=== PATIENT | female | born 1950 | race Caucasian/White ===

== ENCOUNTER 2021-09-07 08:19 | Day surgery (SDC) | payer OTHER ==
[2021-09-07] MEDS ORDERED: Ringers Lactate 1,000 ML IV ONE (09:03)
--- NOTE | 2021-09-07 09:18 | RAD REPORT ---
EXAM DESCRIPTION: RAD - Chest Pa And Lat (2 Views) - 09/07/2021 9:12 am CLINICAL HISTORY: PREPROCEDURE SCREENING Chest pain. COMPARISON: No comparisons FINDINGS: The lungs are clear. The heart is normal in size. No displaced fractures. IMPRESSION: No acute or concerning finding suspected.
[2021-09-07 09:22] LABS: Absolute Lymphocytes (CBC) 1.5 K/uL (0.7-4.9); Hematocrit 36.2 % (36.0-45.0); Lymphocytes % 23.1 % (15.3-44.8); MPV 7.1 fL (7.6-11.3); RBC Red Blood Cell Count 4.59 M/uL (3.86-4.86)
[2021-09-07] MEDS ORDERED: MIDAZOLAM HCL 2 MG/2 ML INJ ONE (09:48)
[2021-09-07] MEDS ORDERED: propofoL 200 MG/20 ML VIAL IV ONE (09:48)
[2021-09-07] MEDS ORDERED: LIDOCAINE 1% MPF 5 ML VIAL ONE (09:48)
[2021-09-07] MEDS ORDERED: ROCURONIUM 50 MG/5 ML VIAL IV ONE (09:48)
[2021-09-07] MEDS ORDERED: FENTANYL CITR 100 MCG/2 ML ONE (09:48)
[2021-09-07 10:03] LABS: ALT/SGPT 17 U/L (12-78); AST/SGOT 13 U/L (15-37); Albumin 3.5 g/dL (3.4-5.0); Alkaline Phosphatase 82 U/L (45-117); Amylase 47 U/L (25-115); BUN Blood Urea Nitrogen 14 mg/dL (7-18); Bicarbonate 26 mmol/L (21-32); Bilirubin Total 0.3 mg/dL (0.2-1.0); Glomerular Filtration Rate 61 ml/min (=/>90); Glucose Level 100 mg/dL (74-106); Potassium 3.9 mmol/L (3.5-5.1); Protein, Total 7.2 g/dL (6.4-8.2); Sodium Level 139 mmol/L (136-145)
[2021-09-07 10:04] LABS: Bilirubin Direct < 0.1 mg/dL (0-0.2)
[2021-09-07] MEDS ORDERED: CEFOXITIN SODIUM 1 GM/VIAL ONE (10:07)
[2021-09-07] MEDS ORDERED: NS 0.9% VIAL 10 ML ONE ×2 (10:23→10:49)
[2021-09-07] MEDS ORDERED: KETOROLAC 30 MG/ML INJ ONE (10:35)
[2021-09-07] MEDS ORDERED: ONDANSETRON 4 MG/2 ML VIAL ONE ×2 (10:35→11:43)
[2021-09-07] MEDS ORDERED: dexAMETHasone 10 MG/ML VIAL ONE (10:35)
[2021-09-07] MEDS ORDERED: EPHEDRINE SULF 50 MG/ML VIAL ONE (10:49)
--- NOTE | 2021-09-07 10:53 | P.BOP ---
Preoperative diagnosis: symptomatic cholelithiasis, cholecystitis Postoperative diagnosis: same Primary procedure: Laparoscopic cholecystectomy Desulfurizer Hand: SUKH RIVERA (DOUBLE BOTTOM DRIVER) Estimated blood loss: <10cc Specimen: gb Findings: as above Anesthesia: General Complications: None Transferred to: Recovery Room Condition: Good
[2021-09-07] MEDS ORDERED: GLYCOPYRROLATE 0.2 MG/ML SYR ONE (10:56)
[2021-09-07] MEDS ORDERED: NEOSTIGMINE 1 MG/ML -10 ML VIAL ONE (10:56)
[2021-09-07] MEDS ORDERED: HYDROMORPHONE HCL 1 MG/ML INJ ONE (11:16)
[2021-09-07] MEDS ORDERED: HYDROCODONE/APAP 5/325 MG TAB ONE (12:20)
--- NOTE | 2021-09-07 13:17 | OP ---
Date of Procedure: 09/07/2021 Surgeon: Elias Loomis MD [employer] Interleafer: MARGO Zamora. Preoperative Diagnoses: Symptomatic cholelithiasis, acute cholecystitis. Postoperative Diagnoses: Symptomatic cholelithiasis, acute cholecystitis. Procedure: Laparoscopic cholecystectomy. Estimated Blood Loss: Less than 10 mL. Specimen: Gallbladder. Finding: As above. Anesthesia: General plus local. Complications: None. Indication: This is the case of a female, who comes to us with above diagnoses. Fully explained the benefits, alternatives, and risks of laparoscopic possible open cholecystectomy, which include, but not limited to infection, bleeding, damage to adjacent structures, anesthesia complication, choledoch olithiasis, bile leak, pancreatitis, LA and even . She also understands this may not relieve an y symptoms. She might need more than one surgical intervention. She understood, signed a consent. Procedure In Detail: The patient was brought to the operating room, placed in supine position. Anes thesia was done without complication. Abdominal area was prepped and draped in the usual sterile fas hion. Marcaine 0.5% was injected for local anesthetic followed by sharp incision of the skin in the infraumbilical region. Incision was carried down to fascia, which was opened under direct vision. P eritoneum was encountered, opened under direct vision. Vicryl #1 placed inside of the fascia. Hasso n trocar was carefully introduced. Pneumoperitoneum was obtained. I placed 3 more trocars under dir ect visualization in the right upper quadrant, 5 mm each one of them. This allowed me to put a grasp er in the fundus of the gallbladder, another grasper in the infundibulum retracting the gallbladder i n the inferolateral fashion, exposing the triangle of Calot and obtaining critical view. Cystic duct and cystic artery were clearly isolated, freed circumferentially and a connection between those and the gallbladder were clearly identified. I proceeded to ligate those by using at least 3 clips proxi mal, 1 clip distal, ligation in middle. Same was done with the cystic artery. No bile leak, no blee ding. The gallbladder was removed from liver using Bovie cauterizer and removed from the abdominal c avity using EndoCatch through the umbilical incision. The area was inspected once again. No bile le ak, no bleeding. At that moment, I proceeded to remove the trocars under direct vision. Deflated th e pneumoperitoneum. Closed the fascia with #1 Vicryl. Irrigated subcutaneous tissue, closed that wi th 3-0 chromic and skin in a subcuticular fashion with 3-0 chromic and Steri-Strips on top. Sponge c ount and instrument counts correct. The patient tolerated the procedure well. The patient was on he r way to recovery in stable condition. PASQUALE/ROSALINA Voice ID: [id number] Report ID: [id number]
--- NOTE | 2021-09-07 13:17 | DS ---
Diagnoses: Symptomatic cholelithiasis, acute cholecystitis. Procedure: Laparoscopic cholecystectomy. Disposition: Home. Activity: As tolerated. No heavy lifting. Plan: Follow up in my office in 1 week. Call for appointment at [phone]. Keep area dry in 48 hour s, then may shower. Keep Steri-Strips intact. PASQUALE/ROSALINA Voice ID: [id number] Report ID: [id number]
[2021-09-07 13:24] VITALS: BP 143/57; TEMP 97; O2SAT 97
--- NOTE | 2021-09-08 09:53 | EKG ---
Test Date: 2021-09-07 Test Time: 09:47:19 Car Mechanic: BURAK MEASUREMENT RESULTS: Intervals: Rate: 69 MN: 170 QRSD: 82 QT: 408 QTc: 437 [place]: P: 43 MN: 170 QRS: -11 T: 60 INTERPRETIVE STATEMENTS: Normal sinus rhythm Normal ECG Compared to ECG 01/06/2007 08:17:24 No significant changes Electronically Signed On 09-08-21 09:49:57 CDT by Simon Jack
== END 2021-09-07 12:41 | disposition home or self-care (01) ==
LOC: OR 08:19
PROVIDERS: ATTEND Surgery
PROC: 0FT44ZZ Resection of Gallbladder, Percutaneous Endoscopic Approach (ICD-10-PCS; principal; 2021-09-07 10:15)
DX: K80.10 Calculus of gallbladder with chronic cholecystitis without obstruction (principal); F41.8 Other specified anxiety disorders; Z20.822 Contact with and (suspected) exposure to COVID-19
CPT/HCPCS: 93005; 85025; 80048; 36415; 82150; 80076; 88304; 83690; 71046; 47562; U0003; J2704; J2710; J3010; J1100; J1170; J7120; J0694; J2405 ×2; J2250